=== PATIENT | female | born 1970 | race Caucasian/White ===

== ENCOUNTER 2020-05-27 09:30 | Outpatient (CLI) | payer OTHER, SELFPAY ==
--- NOTE | ~2020-05-27 | MM_ITS ---
EXAMINATION: MM screening alley BI w yran HISTORY: Screening mammogram TECHNIQUE: Craniocaudal and mediolateral oblique 3-D tomosynthesis images were obtained and synthetic 2-D images were generated. CAD analysis was submitted and interpreted. COMPARISON: 02/13/2018, 08/03/2016, 06/10/2013 bilateral digital screening mammogram examinations BREAST PARENCHYMAL COMPOSITION: There are scattered areas of fibroglandular density....... FINDINGS: Stable bilateral axillary tail lymph nodes. Occasional bilateral benign calcifications. The re is no evidence of suspicious mass, calcification, or architectural distortion to suggest malignanc y in either breast. There has been no suspicious interval change. IMPRESSION: 1. No mammographic evidence of malignancy. 2. Recommend routine screening mammography in one year. BI-RADS Category 2: Benign finding(s). Reviewed, dictated and finalized at location A.
== END 2020-05-27 09:31 | disposition home or self-care (01) ==
PROVIDERS: PCP Internal Medicine; Visit Provider Nurse Practitioner
DX: Z12.31 Encounter for screening mammogram for malignant neoplasm of breast (principal)
CPT/HCPCS: 77063; 77067

== ENCOUNTER 2023-04-13 01:49 | Day surgery (SDC) | payer OTHER, SELFPAY ==
[2023-04-06 11:01] VITALS: BMI 26.6
[2023-04-13 11:40] VITALS: BP 133/91; PULSE 87; RESP 18; TEMP 36.3; O2SAT 98; BMI 26.6
--- NOTE | 2023-04-13 11:49 | P.HP_ITS ---
History of Present Illness History of Present Illness Consent: Risks, benefits, and alternatives have been discussed and questions answered. Patient agrees to proceed with procedure. Chief complaint: neoplasm screening Narrative: Robyn Carrasquillo is a 52 year old female Presents for screening colonoscopy. Patient's current weight appetite and bowel movements are normal. Patient denies abdominal pain. She has had no bleeding. Family history noncontributory. Review of Systems Review of Systems: Review of systems noncontributory. [facility] Past Medical History Medical History (Updated 04/13/23 @ 11:50 by Calin Sutton MD) Essential tremor GERD (gastroesophageal reflux disease) Hyperglycemia Kidney infection Kidney stone Tubal Family History Family History Mother Hypertension Father Hypertension Essential tremor Parkinson disease Social History Social History Smoking status: Never smoker Alcohol intake: current Drinks per week: 6 Alcohol use details: socially every other weekend Substance use: never Substance use type: does not use Living arrangements: alone Spiritual care concerns: No Meds Home Medications and Allergies Home Medications Medication Instructions Recorded Confirmed Type propranolol 80 mg capsule,extended 80 mg PO DAILY 10/14/19 04/13/23 History release 24 hr pantoprazole 40 mg tablet,delayed 40 mg PO DAILY #30 tabs 03/26/23 04/13/23 Rx release estradiol-norethindrone acet 0.5 1 tablet PO DAILY 04/06/23 04/13/23 History mg-0.1 mg tablet Allergies Allergy/AdvReac Type Severity Reaction Status Date / Time hydrocodone Allergy Itching Verified 04/13/23 11:45 Exam Narrative: Physical exam reveals patient to be alert. Vital signs stable. HEENT exam is unremarkable. Patient is anicteric. Lungs are clear to auscultation and percussion. Heart is without murmur or extra sounds. Abdomen bowel sounds are present soft nontender with no organomegaly. Digital external rectal exam normal. Assessment and Plan Assessment and plan (1) Encounter for screening colonoscopy: Code(s): Z12.11 - Encounter for screening for malignant neoplasm of colon Status: Acute Assessment and Plan: Patient presents today for screening colonoscopy. She offers no problems. Appears to be at average risk for colon polyps. Further recommendations may be given after endoscopy.
[2023-04-13] MEDS: LACTATED RINGERS 1,000 ML 150 ML IV CONT (12:01)
--- NOTE | 2023-04-13 12:34 | WPDANESEPPF ---
Anes - Initial Pre Proc Eval Procedure: Operation Date: 04/13/23 13:00 Proposed Procedures p Screening Colonoscopy - Calin Sutton MD Date/Time: 04/13/23 12:34 Surgeon: Calin Sutton MD Pre Op Diagnosis: neoplasm screening Patient Data Age: 52 Gender: F Height: 1.6 m Weight: 68.3 kg Last Vital Signs Temp 97.4 F L 04/13/23 11:40 Pulse 87 04/13/23 11:40 Resp 18 04/13/23 11:40 BP 133/91 H 04/13/23 11:40 Pulse Ox 98 04/13/23 11:40 O2 Del Method Room Air 04/13/23 11:40 Allergies Allergy/AdvReac Type Severity Reaction Status Date / Time hydrocodone Allergy Itching Verified 04/13/23 11:45 Home Medications Medication Instructions Recorded Confirmed Type propranolol 80 mg capsule,extended 80 mg PO DAILY 10/14/19 04/13/23 History release 24 hr pantoprazole 40 mg tablet,delayed 40 mg PO DAILY #30 tabs 03/26/23 04/13/23 Rx release estradiol-norethindrone acet 0.5 1 tablet PO DAILY 04/06/23 04/13/23 History mg-0.1 mg tablet Patient hx anesthesia problems: none Family hx anesthesia problems: none Results Review: All pre-operative results and documents have been reviewed as part of the pre-operative evaluation. [facility] Past Medical History Medical History (Updated 04/13/23 @ 11:50 by Calin Sutton MD) Essential tremor GERD (gastroesophageal reflux disease) Hyperglycemia Kidney infection Kidney stone Tubal Family History Family History Mother Hypertension Father Hypertension Essential tremor Parkinson disease Social History Social History Smoking status: Never smoker Alcohol intake: current Drinks per week: 6 Alcohol use details: socially every other weekend Substance use: never Substance use type: does not use Living arrangements: alone Spiritual care concerns: No Anes - Eval Final PreProcedure Day of Procedure 04/13/23 12:34 Patient weight: normal Heart: regular rate and rhythm Lungs: clear to auscultation Airway: Mallampati scale class II Neurological: alert and oriented Last oral intake: >/= 8 hours ASA classification: II Emergent: no Anesthetic plan: proceed Anesthesia type and monitoring: general GIVS and standard monitoring Results Review: All pre-operative results and documents have been reviewed as part of the pre-operative evaluation. Informed Consent: The patient's anesthetic plan and its attendant risks and benefits were discussed with the patient/family/POA. Questions were solicited and answers provided to the satisfaction of the patient/family/POA.
[2023-04-13 13:25] VITALS: BP 99/61; PULSE 84; RESP 12; O2SAT 98
[2023-04-13 13:35] VITALS: BP 105/61; PULSE 76; RESP 18; O2SAT 98
[2023-04-13 13:45] VITALS: BP 122/82; PULSE 71; RESP 20; O2SAT 98
== END 2023-04-13 13:58 | disposition home or self-care (01) ==
PROVIDERS: PCP Internal Medicine; Visit Provider Internal Medicine Gastroenterology
PROC: 0DJD8ZZ Inspection of Lower Intestinal Tract, Via Natural or Artificial Opening Endoscopic (ICD-10-PCS; CPT 45378; principal; 2023-04-13 13:00)
DX: Z12.11 Encounter for screening for malignant neoplasm of colon (principal); K64.8 Other hemorrhoids; K21.9 Gastro-esophageal reflux disease without esophagitis
CPT/HCPCS: 45378; J2704; J7120

== ENCOUNTER 2023-04-27 11:37 | Outpatient (CLI) | payer OTHER, SELFPAY ==
[2023-04-27 17:05] LABS: Basophils Percent Auto 0.5 % (0.2-1.2); Eosinophils Percent Auto 0.4 % (0-4.4); Hematocrit 38.9 % (37.0-47.0); Hemoglobin 13.1 g/dL (12.0-15.0); Immature Granulocyte Absolute 0.03 K/mm3 (0.00-0.031); Immature Granulocyte Percent A 0.4 % (0-0.5); Lymphocytes Absolute Auto 2.33 K/mm3 (0.9-3.2); Lymphocytes Percent Auto 31.2 % (18.3-44.2); Mean Corpuscular HGB Conc 33.7 g/dl (32-36); Mean Corpuscular Hemoglobin 30.9 pg (26-34); Mean Corpuscular Volume 91.7 fl (80-100); Mean Platelet Volume 9.7 fl (7.4-10.4); Monocytes Absolute Auto 0.6 K/mm3 (0.1-0.6); Monocytes Percent Auto 7.8 % (2.6-8.5); Neutrophils Absolute Auto 4.5 K/mm3 (1.3-6.7); Neutrophils Percent Auto 59.7 % (45.5-73.1); Platelet Count Result 230 k/mm3 (150-375); Red Blood Count 4.24 M/mm3 (4.2-5.4); Red Cell Distribution Width 12.4 % (11.5-14.5); White Blood Count 7.5 K/mm3 (4.5-10.0)
[2023-04-27 17:18] LABS: Alanine Aminotransferase 35 U/L (6-35); Albumin Level 4.2 g/dL (3.5-5.1); Alkaline Phosphatase 71 U/L (38-126); Anion Gap 5 mmol/L (8-16); Aspartate Amino Transferase 35 U/L (14-36); Bilirubin,Total 0.7 mg/dL (0.2-1.3); Blood Urea Nitrogen 15 mg/dL (7-17); Calcium 8.8 mg/dL (8.4-10.2); Carbon Dioxide 29 mmol/L (22-30); Chloride 103 mmol/L (98-107); Cholesterol 181 mg/dL (0-200); Estimated Glomerular Filt Rate > 60; Glucose 94 mg/dL (65-110); HDL Direct 53 mg/dL; Potassium 4.1 mmol/L (3.4-5.0); Sodium 137 mmol/L (137-145); Triglycerides 100 mg/dL (<150)
[2023-04-27 17:29] LABS: LDL Cholesterol Direct 96 mg/dL
[2023-04-27 17:38] LABS: Vitamin D 25 Hydroxy 55.8 ng/mL
== END 2023-04-27 11:38 | disposition home or self-care (01) ==
LOC: ANHGOSHLAB 11:39
PROVIDERS: PCP Internal Medicine; Visit Provider Nurse Practitioner
DX: G25.0 Essential tremor (principal); Z13.21 Encounter for screening for nutritional disorder; Z13.220 Encounter for screening for lipoid disorders
CPT/HCPCS: 36415; 80053; 80061; 82306; 85025

== ENCOUNTER 2023-04-30 08:48 | Outpatient (CLI) | payer OTHER, SELFPAY ==
--- NOTE | ~2023-04-30 | DEXA_ITS ---
Bone Density Report Name: RICARDA MENDOZA Age: 52 Sex: Female Ethnicity: White Date of : 1970 Indication: postmenopausal; screening for osteoporosis; Referring Provider: ANEL ARMÍREZ Study: Bone densitometry was performed. Exam Date: April 30, 2023 Accession number: [id number] Bone Density: Region BMD T-score Z-score Classification AP Spine(L1-L4) 1.239 1.7 2.7 Normal Femoral Neck (Left) 0.795 -0.5 0.5 Normal Total Hip (Left) 0.971 0.2 0.9 Normal Femoral Neck (Right) 0.856 0.1 1.0 Normal Total Hip (Right) 1.010 0.6 1.2 Normal Total Hip Mean 0.991 0.4 1.1 Normal World Health Organization criteria for BMD impression classify patients as: Normal (T-score at or above -1.0), Osteopenia (T-score between -1.0 and -2.5), or Osteoporosis (T-score at or below -2.5). 10-year Fracture Risk: FRAX not reported because: All T-scores for Spine Total, Hip Total, Femoral Neck at or above -1.0 Clinical Information Provided by Patient: Patient maximum height was 64 Menopause Age: 49 Drinks caffeinated beverages Onset of menses at age 12 Number of children 1 Impression: The patient has normal bone mass. Discussion: BONE DENSITY IS ABOVE THE MINIMUM DESIRABLE LEVEL AT ALL SKELETAL SITES TESTED. This patient?s bone mineral density is above the minimum desirable level (T-score -1.0 or better) at all sites measured. The patient should follow a healthful lifestyle (good nutrition with adequate calcium and vitamin D, and appropriate weight-bearing exercise). Follow-Up: Consider repeating this study in 5 years or sooner if there is some new clinical indication. Reported by: [facility] on 04/30/2023 9:14:00 AM. Reviewed, dictated and finalized at location [facility]
--- NOTE | ~2023-04-30 | MM_ITS ---
EXAMINATION: MM screening alley BI w ryan HISTORY: Screening mammogram TECHNIQUE: Craniocaudal and mediolateral oblique 3-D tomosynthesis images were obtained and synthetic 2-D images were generated. CAD analysis was submitted and interpreted. COMPARISON: 05/23/2020, 02/13/2018 bilateral screening mammogram examinations BREAST PARENCHYMAL COMPOSITION: There are scattered areas of fibroglandular density. FINDINGS: There is no evidence of suspicious mass, calcification, or architectural distortion to sugg est malignancy in either breast. There has been no suspicious interval change. IMPRESSION: 1. No mammographic evidence of malignancy. 2. Recommend routine screening mammography in one year. BI-RADS Category 1: Negative Reviewed, dictated and finalized at location B.
== END 2023-04-30 08:49 | disposition home or self-care (01) ==
LOC: ANHIMG 08:52
PROVIDERS: PCP Internal Medicine; Visit Provider Obstetrics & Gynecology Gynecology
DX: Z12.31 Encounter for screening mammogram for malignant neoplasm of breast (principal); Z78.0 Asymptomatic menopausal state
CPT/HCPCS: 77063; 77067; 77080

== ENCOUNTER 2024-01-02 10:20 | Outpatient (CLI) | payer OTHER, SELFPAY ==
[2024-01-02 19:43] LABS: Alanine Aminotransferase 32 U/L (6-35); Albumin Level 4.4 g/dL (3.5-5.1); Alkaline Phosphatase 74 U/L (38-126); Anion Gap 8 mmol/L (4-12); Aspartate Amino Transferase 43 U/L (14-36); Bilirubin,Total 0.9 mg/dL (0.2-1.3); Blood Urea Nitrogen 16 mg/dL (7-17); Calcium 9.5 mg/dL (8.4-10.2); Carbon Dioxide 26 mmol/L (22-30); Chloride 103 mmol/L (98-107); Cholesterol 190 mg/dL (0-200); Estimated Glomerular Filt Rate > 60; Glucose 109 mg/dL (65-110); HDL Direct 54 mg/dL; Potassium 4.4 mmol/L (3.4-5.0); Sodium 137 mmol/L (137-145); Triglycerides 130 mg/dL (<150)
[2024-01-02 19:54] LABS: LDL Cholesterol Direct 107 mg/dL
[2024-01-02 20:13] LABS: Thyroid Stimulating Hormone 0.555 uIU/mL (0.465-4.680)
== END 2024-01-02 10:21 | disposition home or self-care (01) ==
LOC: ANHGOSHLAB 10:21
PROVIDERS: PCP Nurse Practitioner; Visit Provider Nurse Practitioner
DX: R51.9 Headache, unspecified (principal)
CPT/HCPCS: 36415; 80053; 80061; 84443

== ENCOUNTER 2024-03-21 10:45 | Outpatient (CLI) | payer OTHER, SELFPAY ==
--- NOTE | ~2024-03-21 | US_ITS ---
EXAMINATION: US thyroid DATE: 03/21/2024 11:39 INDICATION: Nontoxic single thyroid nodule TECHNIQUE: Multiple ultrasound images of the thyroid were obtained. COMPARISON: None. FINDINGS: The right thyroid lobe measures 4.4 x 1.3 x 1.6 cm. The left thyroid lobe measures 4.1 x 1.5 x 1.3 c m. 1.4 cm solid wider than tall hypoechoic nodule with lobular margins but with echogenic foci in th e left thyroid lobe (TI-RADS 5, highly suspicious , FNA if >=1.0 cm, annual followup is >0.5 cm). 3-4 mm solid hypoechoic TI RADS 4 nodule with smooth margins and without echogenic foci in the right thy roid lobe. There is normal echotexture, echogenicity and vascular flow throughout the remainder of th e thyroid gland. IMPRESSION: 1. 1.4 cm TI RADS 4 left thyroid nodule for which ultrasound-guided fine-needle aspiration would be r ecommended. Reviewed, dictated and finalized at location A. IMPRESSION: 1. 1.4 cm TI RADS 4 left thyroid nodule for which ultrasound-guided fine-needle aspiration would be recommended.
== END 2024-03-21 10:46 | disposition home or self-care (01) ==
LOC: ANHIMG 10:46
PROVIDERS: PCP Nurse Practitioner; Visit Provider Nurse Practitioner
DX: E04.1 Nontoxic single thyroid nodule (principal)
CPT/HCPCS: 76536

== ENCOUNTER 2024-05-02 11:37 | Outpatient (CLI) | payer OTHER, SELFPAY ==
[2024-05-02 14:39] LABS: Basophils Percent Auto 0.6 % (0.2-1.2); Eosinophils Percent Auto 0.1 % (0-4.4); Hematocrit 41.3 % (37.0-47.0); Hemoglobin 13.7 g/dL (12.0-15.0); Immature Granulocyte Absolute 0.02 K/mm3 (0.00-0.031); Immature Granulocyte Percent A 0.3 % (0-0.5); Lymphocytes Absolute Auto 2.65 K/mm3 (0.9-3.2); Lymphocytes Percent Auto 38.4 % (18.3-44.2); Mean Corpuscular HGB Conc 33.2 g/dl (32-36); Mean Corpuscular Hemoglobin 30.8 pg (26-34); Mean Corpuscular Volume 92.8 fl (80-100); Mean Platelet Volume 9.7 fl (7.4-10.4); Monocytes Absolute Auto 0.8 K/mm3 (0.1-0.6); Monocytes Percent Auto 11.1 % (2.6-8.5); Neutrophils Absolute Auto 3.4 K/mm3 (1.3-6.7); Neutrophils Percent Auto 49.5 % (45.5-73.1); Platelet Count Result 249 k/mm3 (150-375); Red Blood Count 4.45 M/mm3 (4.2-5.4); White Blood Count 6.9 K/mm3 (4.5-10.0)
[2024-05-02 15:19] LABS: Alanine Aminotransferase 32 U/L (6-35); Albumin Level 4.3 g/dL (3.5-5.1); Alkaline Phosphatase 61 U/L (38-126); Anion Gap 9 mmol/L (4-12); Aspartate Amino Transferase 41 U/L (14-36); Bilirubin,Total 0.5 mg/dL (0.2-1.3); Blood Urea Nitrogen 20 mg/dL (7-17); Calcium 9.3 mg/dL (8.4-10.2); Carbon Dioxide 28 mmol/L (22-30); Chloride 100 mmol/L (98-107); Cholesterol 181 mg/dL (0-200); Estimated Glomerular Filt Rate > 60; Glucose 91 mg/dL (65-110); HDL Direct 56 mg/dL; Potassium 4.3 mmol/L (3.4-5.0); Sodium 137 mmol/L (137-145); Triglycerides 119 mg/dL (<150)
[2024-05-02 15:30] LABS: LDL Cholesterol Direct 93 mg/dL
[2024-05-02 15:47] LABS: Thyroid Stimulating Hormone 0.724 uIU/mL (0.465-4.680)
[2024-05-02 15:51] LABS: Vitamin D 25 Hydroxy 39.7 ng/mL
== END 2024-05-02 11:38 | disposition home or self-care (01) ==
LOC: ANHGOSHLAB 11:39
PROVIDERS: PCP Internal Medicine; Visit Provider Nurse Practitioner
DX: E55.9 Vitamin D deficiency, unspecified (principal); R74.8 Abnormal levels of other serum enzymes; G25.0 Essential tremor
CPT/HCPCS: 36415; 80053; 80061; 82306; 84443; 85025

== ENCOUNTER 2024-05-09 12:27 | Outpatient (CLI) | payer OTHER, SELFPAY ==
--- NOTE | ~2024-05-09 | US_ITS ---
EXAMINATION: US FNA w image guidance DATE: 05/09/2024 13:21 INDICATION: left thyroid nodule TECHNIQUE: A time-out was performed to verify the patient's name, date of , and procedure to be performed . The procedure and its benefits and risks were discussed with the patient. Risks specifically discus sed included bleeding and infection. The patient understood the risks and agreed to proceed. The neck was prepped and draped in the usual sterile manner. 3 mL 1% lidocaine was used for local anesthesia . 6 passes were made with a 25G needle into the lesion. Appropriate needle location was documented with continuous sonographic guidance. A sterile bandage was applied. There were no immediate compli cations. FINDINGS: Grayscale ultrasound images demonstrate biopsy needles advanced into a 1.5 x 0.8 x 0.6 cm TI RADS 5 l eft thyroid nodule. IMPRESSION: 1. Successful ultrasound-guided fine needle aspiration of a 1.5 cm TI RADS 5 left thyroid nodule. Reviewed, dictated and finalized at location A. IMPRESSION: 1. Successful ultrasound-guided fine needle aspiration of a 1.5 cm TI RADS 5 l eft thyroid nodule.
== END 2024-05-09 12:28 | disposition home or self-care (01) ==
LOC: ANHIMG 12:28
PROVIDERS: PCP Internal Medicine; Visit Provider Clinical Nurse Specialist
DX: E04.1 Nontoxic single thyroid nodule (principal)
CPT/HCPCS: 10005; 88172; 88173; 88305

== ENCOUNTER 2025-03-24 11:05 | Emergency (ER) | payer OTHER, SELFPAY ==
[2025-03-24] VITALS (7 sets, daily range): BP systolic 144–173; BP diastolic 76–106; PULSE 57–62; RESP 13–16; TEMP 36.8–37; O2SAT 97–98
--- NOTE | ~2025-03-24 | CT_ITS ---
EXAMINATION: CTA chest PE protocol DATE: 03/24/2025 13:56 CDT INDICATION: Elevated d-dimer with chest pain TECHNIQUE: Computed tomographic angiography (CTA) of the chest was performed with 100 mL Omnipaque-35 0 intravenous contrast. The dose-length product was 216.14 mGy-cm. Maximum intensity projection 3D-re constructions of the aorta and other arteries were constructed by the technologist on a separate work station. COMPARISON: None. FINDINGS/OBSERVATIONS: PULMONARY ARTERIES: No filling defect is identified within the main or proximal pulmonary artery. The main pulmonary artery is not enlarged. THORACIC AORTA: No aneurysmal dilatation or dissection is present. The great vessels are intact LUNGS: Scattered 4 and 5 mm nodules detected bilaterally. These are detailed as follows: Left upper lobe, 4.9 mm, axial series, image 29. Left lower lobe, 5.4 mm, axial series, image 70. Right middle lobe, 4.5 mm, axial series, image 43 Right lower lobe, 7 mm, axial series, image 84 Right lower lobe, 5.4 mm, axial series, image 61 MEDIASTINUM: No morphologically suspicious or pathologically enlarged lymph nodes are identified with in the mediastinum. Nonpathologically enlarged or morphologically suspicious lymph nodes within the bilateral axilla, the largest measuring 7.6 mm in short axis dimension (axial series, image 17). BONES OF THE CHEST: No acute fracture. No significant degenerative disease. No lytic or blastic lesions. HEART: The heart is of normal size, without pericardial effusion. IMPRESSION: No pulmonary embolus. No thoracic aortic dissection. Scattered subcentimeter pulmonary nodules, the largest measuring 7 mm in the right lower lobe for whi ch follow-up as per Fleischner guidelines is recommended (PET/CT versus 3 month follow-up). The lungs are otherwise clear. Reviewed, dictated and finalized at location A. IMPRESSION: No pulmonary embolus. No thoracic aortic dissection. Scattered subcentimeter pulmonary nodules, the largest measuring 7 mm in the ri ght lower lobe for which follow-up as per Fleischner guidelines is recommended (PET/CT versus 3 month follow-up). The lungs are otherwise clear.
--- NOTE | ~2025-03-24 | XR_ITS ---
EXAMINATION: XR chest 2V 03/24/2025 12:14 INDICATION: Chest tightness PROCEDURE: 2 view chest COMPARISON: 01/27/2013 FINDINGS: The lungs are clear. The cardiomediastinal silhouette is within normal limits. There are no pleural effusions. There is no pneumothorax suspected. IMPRESSION: 1: NO ACUTE CARDIOPULMONARY DISEASE. Reviewed, dictated and finalized at location A.
--- NOTE | 2025-03-24 11:13 | ECG_ITS ---
Test Date: 2025-03-24 11:15:24 Measurements Intervals [place] Rate: 54 P: 28 ID: [id number] QRS: 6 QRSD: 85 T: 16 QT: 410 QTc: 389 Interpretive Statements SINUS BRADYCARDIA No previous ECG available for comparison Electronically Signed On 03-24-2025 16:59:17 CDT by Gill Howard M.D.
[2025-03-24 11:23] LABS: Hematocrit 40.1 % (37.0-47.0); Hemoglobin 13.8 g/dL (12.0-15.0); Immature Granulocyte Percent A 0.2 % (0-0.5); Lymphocytes Absolute Auto 2.25 K/mm3 (0.9-3.2); Mean Corpuscular HGB Conc 34.4 g/dl (32-36); Mean Corpuscular Hemoglobin 30.7 pg (26-34); Mean Corpuscular Volume 89.3 fl (80-100); Nucleated Red Blood Cells Absolute Auto 0.000 K/mm3 (0.0-0.012); Nucleated Red Blood Cells Perc 0.0 % (0.0-0.2); Platelet Count Result 237 k/mm3 (150-375); Red Blood Count 4.49 M/mm3 (4.2-5.4); White Blood Count 6.4 K/mm3 (4.5-10.0)
[2025-03-24 11:46] LABS: INR 1.1; Prothrombin Time 14.1 Seconds (11.1-14.7)
[2025-03-24 11:47] LABS: Partial Thromboplastin Time 23.7 Seconds (22.3-36.8)
[2025-03-24 11:49] LABS: Alanine Aminotransferase 35 U/L (6-35); Albumin Level 4.3 g/dL (3.5-5.1); Alkaline Phosphatase 65 U/L (38-126); Anion Gap 10 mmol/L (4-12); Aspartate Amino Transferase 34 U/L (14-36); Bilirubin,Total 0.8 mg/dL (0.2-1.3); Blood Urea Nitrogen 14 mg/dL (7-17); Calcium 9.5 mg/dL (8.4-10.2); Carbon Dioxide 23 mmol/L (22-30); Chloride 102 mmol/L (98-107); Estimated CRCL calculation 64 ml/min; Estimated Glomerular Filt Rate > 60; Glucose 113 mg/dL (65-110); Lipase 36 U/L (23-300); Potassium 4.1 mmol/L (3.4-5.0); Sodium 135 mmol/L (137-145); Total Protein 7.2 g/dL (6.3-8.2)
[2025-03-24 11:57] LABS: Troponin I < 0.012 ng/mL (0.000-0.034)
--- OUTSIDE RECORDS SUMMARY | 2025-03-24 12:16 | XMS_ITS | Clinical Summary ---
Author Organization [facility] [employer] Address [address] [place] [address] Care Team Providers Care Display And Banner Designer Name Role Phone Adrienne Juan Real DAVIS Primary Care Provider [phone] Source Comments [facility] [employer],non-owned Affiliates and Associated Physician Practices is amultiple site organization consisting of ambulatory clinics and hospital sitesin [place] and [place]. This disclosure is being madepursuant to the Care Everywhere program and may not contain all information available regarding this patient. Last updated 18.[facility] [employer] Allergies Active Allergy Reactions Criticality Noted Date Comments Hydrocodone Itching Medium 02/11/2019 Medications * Be aware that medications may not be up to date on this document. Alwaysverify current medications with the patient. PROPRANOLOL HCL PO A ctive Pantoprazole Sodium (PROTONIX PO) Active Norgestim-Eth Estrad Triphasic (ORTHO TRI-CYCLEN LO PO) Active Active Problems No known active problems Family History Medical History Relation Name Comments Hypertension Father Parkinson's Disease Father Hypertension Mother Relation Name Status Comments Father Mother Social History Tobacco Use Types Packs/Day Years Used Date Smoking Tobacco: Never Smokeless Tobacco: Never Comments No Sex and Gender Information Value Date Recorded Sex Assigned at Not on file Legal Sex Female 7:49 AM CDT Gender Identity Not on file Sexual Orientation Not on file Last Filed Vital Signs Vital Sign Reading Time Taken Comments Blood Pressure 114/66 11/11/2019 5:12 PM CDT Pulse 86 11/11/2019 5:12 PM CDT Temperature 37.3 C (99.1 F) 11/11/2019 5:12 PM CDT Respiratory Rate 16 11/11/2019 5:12 PM CDT Oxygen Saturation 98% 11/11/2019 5:12 PM CDT Inhaled Oxygen Concentration - - Weight 68 kg (150 lb) 11/11/2019 5:12 PM CDT Height 162.6 cm (5' 4) 11/11/2019 5:12 PM CDT Body Mass Index 25.75 11/11/2019 5:12 PM CDT Plan of Treatment Health Maintenance Due Date Last Done Comments COLOGUARD (AGES 45-75) - COL ON CA SCREENING 1970 COLON MONITORING 1970 COLONOSCOPY - COLON CA SCREENING 1969 CT COLONOGRAPHY - COLON CA SCREENING 1970 Colorectal Cancer Screening 1970 FIT - COLON CA SCREENING 1969 FLEX SIG - COLON CA SCREENING 1969 LIPID TESTING 1970 MAMMOGRAM 1970 HIV SCREENING 1984 HEPATITIS C SCREENING 09/25/1987 DTAP/TDAP/TD VACCINES (1 - Tdap) 1988 HEPATITIS B VACCINE (1 of 3 - 19+ 3-dose series) 1988 SCREENING FOR DIABETES 02/11/2019 PNEUMOCOCCAL VACCINE 50+ (1 of 1 - PCV) 2019 ZOSTER VACCINE (1 of 2) 2019 COVID-19 VACCINE (1 - 2023-2 5 season) 2024 DEPRESSION SCREENING 09/03/2024 INFLUENZA VACCINE (#1) 2025 HIB VACCINE Aged Out No longer eligi ble based on patient's age to complete this topic HPV VACCINE Aged Out No longer eligi ble based on patient's age to complete this topic MENINGOCOCCAL (Group B) VACC INE SHARED DECISION-MAKING Aged Out No longer eligibl e based on patient's age to complete this topic MENINGOCOCCAL GROUPS A/C/Y/W VACCINE Aged Out No longer eligible b ased on patient's age to complete this topic Insurance [facility] Care Teams Display And Banner Designer Relationship Specialty Start Date End Date Juan Deleon DO PCP - General Internal Medicine 02/11/19
--- OUTSIDE RECORDS SUMMARY | 2025-03-24 12:16 | XMS_ITS | Referral Summary ---
Author Organization [facility] Address [address] [place] [address] Care Team Providers Care Baker Chef Name Role Phone Juan Deleon DO Primary Care Provider +- [phone] Ishan Oconnor MD Unavailable SummerdaleMarko florentino MD Unavailable +1 [phone] Encounters Date Type Department Care Team Description 03/24/2025 10:00 AM CDT Office Visit [facility] at [address] [address] Rebeca Key NP Other chest pain (Primary Dx); Elevated blood pressure reading without diagnosis of hypertension 01/07/2025 2:00 PM CDT Office Visit [facility] Movement Disorders [address] [address] [address] [place] [address] Zunilda Arevalo NP Essential tremor (Primary Dx); Impaired proprioception 12/25/2024 Results Follow-Up [facility] at [address] [address] Tali Silva PA Urine culture Urine, clean voided 12/23/2024 10:44 PM CDT - 12/23/2024 11:59 PM CDT Hospital Encounter [id number] [place] [address] Urinary frequency Discharge Disposition: Discharge to home or self care 12/23/2024 7:30 PM CDT Office Visit [facility] at [address] [address] Ashish Willis NP Urinary frequency (Primary Dx) from Last 3 Months Allergies Active Allergy Reactions Criticality Noted Date Comments Hydrocodone Itching Low 11/21/2015 Medications levonorgestrel- ethinyl estrad (LYBREL) 90-20 mcg per tablet Take 1 tablet by mouth every morning Active pantoprazole DR (PROTONIX) 40 mg EC tablet Take 1 tablet (40 mg total) by mouth engineering instructor before breakfast Active propranolol LA (INDERAL LA) 120 mg 24 hr capsule Take 1 Capsule (120 mg) by mouth daily. 90 capsule 3 5 Active primidone (MYSOLINE) 50 mg tablet Week 1 start 25 mg (1/2 tab) nightly at bedtime. Week 2 increase to 50 mg (1 tab) nightly at bedtime). Week 3 increase to 75 mg (1.5 tabs) nightly at bedtime. Week 4 increase to 100 mg (2 tabs) nightly at bedtime. 60 tablet 11 5 Active Active Problems Problem Noted Date Diagnosed Date Lump on neck 08/10/2024 Assessment & Plan (08/10/2024 7:24 PM AVICULTURIST): No visible significant lump or mass noted however patient has moderate tenderness on palpation in under the left jaw area and proximal portion of left side of neck Unclear etiology? 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 Carrasquillo has postural/action tremor greater than rest tremor along with voice tremor with a family history of tremor consistent with essential tremor. She thus far has not had signs of parkinsonism. She has historically had improvement of her tremor with propranolol though not with most recent increase to 120 mg LA (from 80 mg LA) and with resultant fatigue. Regarding her imbalance, this has been largely stable. On previous exam she had decreased proprioception and vibratory sense with brisk reflexes and an upgoing toe on the left. There was consideration of myelopathy versus large-fiber neuropathy. EMG/NCS and MRI brain/spine were unrevealing. Serum studies including zinc, TSH, B12, immunofixation, vitamin E, ESR, and ceruloplasmin were unremarkable (B12 377). There were mild degenerative changes noted throughout the cervical, thoracic and lumbar spine without high-grade spinal canal or neuroforaminal narrowing as well as an incidentally noted small enhancing left thyroid nodule on the MRIs. She has since undergone thyroid ultrasound and biopsy. She has some intermittent RUE tingling and pain without weakness that may represent radiculopathy. Could consider PT. Recommendations: For now continue same propranolol 120 mg LA - will plan to reduce this back to previous dosing of 80 m g LA once optimized on primidone due to fatigue Start primidone and titrate as tolerated/as needed up to 100 mg nightly for now until she sends update Week # 1: Start taking 25 mg at night Week # 2: Take 50 mg nightly Week # 3: Take 75 mg nightly Week # 4: Take 100 mg nightly Follow-up as scheduled Potential medication side effects were discussed during the encounter. Assessment & Plan (11/25/2023 2:36 PM CDT): Ms. Ibarra has postural/action tremor greater than rest tremor along with voice tremor with a family history of tremor consistent with essential tremor. She has no signs of parkinsonism or progression. She has had improvement of her tremor with propranolol with perhaps occasional orthostatic hypotension. She would like to try an increased dose of propranolol for better tremor control. We discussed importance of hydration and the risk of orthostasis (light-headedness with standing). If this occurs, we can add primidone instead. She has had worsening balance in the past year. On exam, she has marked decreased proprioception and vibratory sense. Reflexes are symmetric brisk in lower extremities with upgoing toe on the left. . Ddx for this is myleopathy vs large-fiber neuropathy. We will obtain spine imaging for this and also do an EMG/NCS to sort this out. We will do first tier neuropathy labs. Based on results, we will consider a neuromuscular referral. Recommendations: Essential Tremor. Increase propranolol to 120mg ER ; drink 2 L of fluids Watch for light-headed with standing. Bloodwork for myelopathy/neuropathy due to proprioceptive loss EMG/NCS MRI brain/spine Consider neuromuscular referral based on results Assessment & Plan (10/18/2022 8:59 PM AVICULTURIST): Ms. Ibarra has postural/action tremor greater than rest tremor along with voice tremor with a family history of tremor consistent with essential tremor. She has no signs of parkinsonism or progression. She has had improvement of her tremor with propranolol with perhaps occasional orthostatic hypotension. If this worsens, we can switch her to pimidone or decrease her propranolol dose and add on primidone. We discussed this strategy today, and she is fine with her current propranolol. Of note, she has a 3 ?dermal vs subdermal mass lesion on her forehead that has increased in size recently. We will refer her to plastics (face) for this. There are 3 and they are immobile, hard, and round in nature. Recommendations: 1. Continue propranolol. 2. Plastic surgery/face referral 3. Follow up in 1 year. The patient should call the office prn. Assessment & Plan (06/10/2020 11:15 AM CDT): essential tremor: Ms. Ibarra has postural/action tremor greater than rest tremor with a family history of tremor. This most likely represents an essential tremor. She has no signs of parkinsonism or progression. She feels better on the propranolol with mild residual tremor and would like to continue her current dose. She notes some vague sense of imbalance with turning. She will get it check out with her PMD if it does not resolve. It does not seem related to her tremor or propranolol. Recommendations: 1. Continue propranolol. The patient should return to office in 12 months. The patient should call the office prn. Assessment & Plan (06/12/2019 2:19 PM CDT): essential tremor: Ms. Ibarra has postural/action tremor greater than rest tremor with a family history of tremor. This most likely represents an essential tremor. She has no signs of parkinsonism or progression. She feels better on the propranolol with mild residual tremor and would like to continue her current dose. Recommendations: 1. Continue propranolol. The patient should return to office in 12 months. The patient should call the office prn. Social History Tobacco Use Types Packs/Day Years Used Date Smoking Tobacco: Never Smokeless Tobacco: Never Tobacco Cessation:Counseling Given: Not Answered AUDIT-C Answer Date Recorded Q1: How often do you have a drink containing alc ohol? 2-4 times a month 04/23/2024 Q2: How many drinks containi ng alcohol do you have on a typical day when you are drinking? 1 or 2 04/23/2024 Q3: How often do you have si x or more drinks on one occasion? Never 04/23/2024 PHQ-2 Answer Date Recorded PHQ-2 Total Score (If total score is 3 or more points, staff should administer the PHQ-9) 0 05/11/2023 Personal Safety Answer Date Recorded Have you ever been in or are you currently in a harmful physical or emotional relationship or is someone making you feel afraid or unsafe? Denies 04/23/2024 Comments No Sex and Gender Information Value Date Recorded Sex Assigned at Not on file Legal Sex Female 7:46 AM AVICULTURIST Gender Identity Not on file Sexual Orientation Not on file Last Filed Vital Signs Vital Sign Reading Time Taken Comments Blood Pressure 172/136 03/24/2025 10:31 AM CDT Pulse 74 03/24/2025 10:31 AM CDT Temperature 36.6 C (97.8 F) 03/24/2025 9:59 AM CDT Respiratory Rate 16 03/24/2025 9:59 AM CDT Oxygen Saturation 97% 03/24/2025 9:59 AM CDT Inhaled Oxygen Concentration - - Weight 74.4 kg (164 lb) 03/24/2025 9:59 AM CDT Height 162.6 cm (5' 4) 03/24/2025 9:59 AM CDT Body Mass Index 28.15 03/24/2025 9:59 AM CDT Plan of Treatment Not on file Medical Devices Implanted Type Area Certified Recreational Therapist Device Identifier Shelf Expiration Date Model / Serial / Lot Infoxel Juan Jose Contour Vl 4.8fr 22-30cm Taper Tip Bladder Calin Low Profile Stiff Latex Free 180-155-01 - [id number] Implanted:Qty: 1 on 05/11/2023 by Ishan Oconnor MD at [facility] Left: Ureter [place] [employer] Juan Jose 09/04/2026 [id number] / / [id number] Procedures Procedure Name Priority Date/Time Associated Diagnosis Comments ECG 12-LEAD Routine 03/24/2025 10:12 AM CDT Other chest pain POCT URINALYSIS DIPSTICK Routine 12/23/2024 7:40 PM CDT Urinary frequency URINE CULTURE Routine 12/23/2024 7:40 PM CDT Urinary frequency SCREENING MAMMOGRAM BILATERAL W GEORGES Schedule Routine, Read Routine (OP Routine) 07/04/2024 4:20 PM CDT Screening mammogram, encounter for from Last 3 Months or Most Recently Relevant to Health Maintenance Results * ECG 12 lead (03/24/2025 10:12 AM CDT) Rebeca Key NP ECG ORDERABLES Final Result * POCT urinalysis dipstick (12/23/2024 7:40 PM CDT) Color, Urine, POC Yellow Clarity, ur, POC Clear Clear Glucose, ur, POC Negative Negative MG/DL Bilirubin, ur, POC Negative Negative, Small, Moderate, Large Ketones, ur, POC Negative Negative Specific [place], POC 1.030 1.003 - 1.030 Blood, ur, POC Negative Negative pH, ur, POC 5.5 5.0 - 8.0 Protein, ur, POC Negative Negative Urobilinogen, urine, POC 0.2 0.2 - 1.0 mg/dL Nitrite, ur, POC Negative Negative Leukocytes, ur, POC Negative Negative Lot Number [id number] Urine 12/23/2024 7:40 PM CDT Ashish Willis NP POINT OF CARE TEST ORDERABLES F inal Result * Urine culture Urine, clean voided (12/23/2024 7:40 PM CDT) Report Final Report: Growth indicative of contamination with periurethral viral. Please submit a new specimen with special attention given to the collection process and to prompt transport to the laboratory. Comment:Testing performed by : [facility], [address] [place]., [address] Organism GROWTH INDICATES CONTAM WITH PERIURETHRAL VIRAL. TRUE Urine, clean voided 12/23/2024 7:40 PM CDT 12/24/2024 5:53 AM CDT Narrative TRUE - 12/25/2024 1:13 PM CDT Testing performed by [facility] Microbiology Laboratory ([phone]) Ashish Willis NP LAB MICROBIOLOGY - [facility] Final Result TRUE [id number] Department [place] [address] * Screening Mammogram Bilateral W Georges (07/04/2024 4:20 PM CDT) Anatomical Region Laterality Modality Breast Bilateral Mammography 07/16/2024 9:05 AM AVICULTURIST Impressions 07/16/2024 9:05 AM AVICULTURIST No evidence of malignancy in either breast. FINAL ASSESSMENT: BI-RADS Category 1: Negative. RECOMMENDATION: Recommend return for annual screening mammogram in 12 months. Electronically signed by: Deonna Mccullough MD Narrative 07/16/2024 9:05 AM AVICULTURIST EXAMINATION: BILATERAL SCREENING MAMMOGRAM COMPARISON: Mammography 04/30/2023, 05/27/2020 TECHNIQUE: Full-field 2D and digital breast tomosynthesis (DBT) images were obtained. CAD was utilized. BREAST PARENCHYMAL COMPOSITION: There are scattered areas of fibroglandular density. FINDINGS: There is no suspicious mass, calcification, or distortion in either breast. Self Screening Mammogram IMG MAMMO PROCEDURES Fi nal Result from Last 3 Months or Most Recently Relevant to Health Maintenance Insurance [facility] Advance Directives For more information, please contact: [phone] * Full Code (Latest Code Status on File) Date Activated Date Inactivated Comments 05/11/2023 12:29 PM 05/12/2023 5:23 PM Care Teams Baker Chef Relationship Specialty Start Date End Date Juan Deleon DO PCP - General 04/20/17 Ishan Oconnor MD Consulting Physician Urology 05/12/23 SummerdaleMarko florentino MD Consulting Physician Urology 08/28/23
--- OUTSIDE RECORDS SUMMARY | 2025-03-24 12:16 | XMS_ITS | Encounter Summary ---
Author Organization [facility] Address [address] [place] [address] Care Team Providers Care Automatic Centrifugal Station Operator Name Role Phone Juan Deleon DO Primary Care Provider [phone]- [phone] Ishan Oconnor MD Unavailable EquinunkMarko florentino MD Unavailable [phone] [phone] Reason for Visit * Reason Comments Chest Pain Patient here for c/o chest pain that stared about 20 minutes ago. States she feels like someone was sitting on her chest. Jaw pain that started at the same time. 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 Gender Identity Not on file Sexual Orientation Not on file documented as of this encounter Last Filed Vital Signs Vital Sign Reading [...] Mass Index 28.15 03/24/2025 9:59 AM CDT documented in this encounter Plan of Treatment Not on file documented as of this encounter Procedures Procedure Name Priority Date/Time Associated Diagnosis Comments ECG 12-LEAD Routine 03/24/2025 10:12 AM CDT Other chest pain documented in this encounter Results * ECG 12 lead (03/24/2025 10:12 AM CDT) Rebeca Key PLASTER MECHANIC ECG ORDERABLES Final Result documented in this encounter Visit Diagnoses Diagnosis Other chest pain- Primary Elevated blood pressure reading without diagnosis of hypertension documented in this encounter Care Teams Automatic Centrifugal Station Operator Relationship Specialty Start Date End Date Juan Deleon DO PCP - General 04/20/17 Ishan Oconnor MD Consulting Physician Urology 05/12/23 EquinunkMarko MD Consulting Physician Urology 08/28/23 documented as of this encounter
--- OUTSIDE RECORDS SUMMARY | 2025-03-24 12:16 | XMS_ITS | Clinical Summary ---
Author Organization [facility] Address [address] [place] [address] Care Team Providers Care Strip Cleaner Name Role Phone Juan Deleon DO Primary Care Provider +1- [phone] Ishan Oconnor MD Unavailable RogersonMarko florentino MD Unavailable [phone] -[phone] Allergies Active Allergy Reactions Criticality Noted Date Comments Hydrocodone Itching Low 11/21/2015 Medications levonorgestrel- ethinyl estrad (LYBREL) 90-20 mcg per tablet Take 1 tablet by mouth every morning Active pantoprazole DR (PROTONIX) 40 mg EC tablet Take 1 tablet (40 mg total) by mouth warehouse engineer before breakfast Active propranolol LA (INDERAL LA) [...] 08/10/2024 Assessment & Plan (08/10/2024 7:24 PM BELT TURNER): No visible significant lump or mass noted [...] of bones of skull and face 02/14/20 24 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 Ibarra has postural/action tremor greater than [...] The patient should call the office prn. Encounters Date Type Department Care Team Description 03/24/2025 10:00 AM CDT Office Visit [facility] at [address] [phone] Rebeca Key NP Other chest pain (Primary Dx); Elevated blood pressure reading without diagnosis of hypertension 01/07/2025 2:00 PM CDT Office Visit [facility] Movement Disorders [address] [place] [address] [address] [place] [address] Zunilda Arevalo NP Essential tremor (Primary Dx); Impaired proprioception 12/25/2024 Results Follow-Up [facility] at [address] [phone] Tali Silva PA Urine culture Urine, clean voided 12/23/2024 10:44 PM CDT - 12/23/2024 11:59 PM CDT Hospital Encounter [address] [address] Urinary frequency Discharge Disposition: Discharge to home or self care 12/23/2024 7:30 PM CDT Office Visit [facility] Medical Group [facility] Care at [address] [address] Ashish Willis NP Urinary frequency (Primary Dx) from Last 3 Months Surgical History Surgery Date Site/Laterality Comments SALPINGECTOMY 09/03/2007 - 09/02/2008 Left HERNIA REPAIR 09/03/1978 - 09/02/1979 Left Medical History Medical History Date Comments Gastric reflux Kidney stone GERD (gastroesophageal reflux disease) Family History Medical History Relation Name Comments Arthritis Father Essential Tremor Father Family hist ory of benign essential tremor - (Added by TW Conv) Gout Father Prostate cancer Father Urolithiasis Father's Brother Prostate cancer Paternal Grandfather age unknown Breast cancer Neg Hx Ovarian cancer Neg Hx Pancreatic cancer Neg Hx Relation Name Status Comments Father Father's Brother Paternal Grandfather Social History Tobacco Use Types Packs/Day Years [...] on file Legal Sex Female 7:46 AM BELT TURNER Gender Identity Not on file Sexual Orientation Not on file Obstetrics History Para Term AB IAB SAB Ectopic Multiple Livin g Live Births 1 1 1 Date Outcome GA Total Labor Labor/2nd/3rd Weight Sex Type Anes PTL Rebecca A1 A5 Name Clin Term Last Filed Vital Signs Vital Sign Reading [...] 03/24/2025 9:59 AM CDT Plan of Treatment Health Maintenance Due Date Last Done Comments Cervical Cancer Screening 1969 Colon Cancer Screening-Colonoscopy 1969 Hepatitis C Screening 1969 DTaP/Tdap/Td Vaccine (1 - Tdap) 1980 Hepatitis B Screening 1987 Regular Well Visit/Exam 18-64 1987 Zoster Vaccine (1 of 2) 2019 Covid-19 Vaccine (2 - 2023-2 5 season) 2024 07/29/2021 Depression Screening 05/11/2024 05/11/2023 Influenza Vaccine (#1) 2025 Breast Cancer Screening-Mammogram 07/04/2025 024 Pneumococcal vaccine <65 Aged Out No longer eligible based on patient's age to complete this topic Medical Devices Implanted Type Area Casting Machine Adjuster Device Identifier Shelf Expiration Date Model / Serial / Lot [employer] Juan Jose Contour Vl 4.8fr 22-30cm Taper Tip Bladder Calin Low Profile Stiff Latex Free 180-155-01 - [id number] Implanted:Qty: 1 on 05/11/2023 by Ishan Oconnor MD at [facility] Left: Ureter [place] [employer] Juan Jose 09/04/2026 [id number] / / [id number] Procedures Procedure Name Priority Date/Time Associated Diagnosis [...] lead (03/24/2025 10:12 AM CDT) Rebeca Key FRONT DESK AUXILIARY ECG ORDERABLES Final Result * POCT urinalysis dipstick (12/23/2024 7:40 PM CDT) Color, Urine, POC Yellow Clarity, ur, POC Clear Clear Glucose, ur, POC Negative Negative MG/DL Bilirubin, ur, POC Negative Negative, Small, Moderate, Large Ketones, ur, POC Negative Negative Specific [place], POC 1.030 1.003 - 1.030 Blood, ur, POC Negative Negative pH, ur, POC 5.5 5.0 - 8.0 Protein, ur, POC Negative Negative Urobilinogen, urine, POC 0.2 0.2 - 1.0 mg/dL Nitrite, ur, POC Negative Negative Leukocytes, ur, POC Negative Negative Lot Number [id number] Urine 12/23/2024 7:40 PM CDT Ashish Willis NP POINT OF CARE TEST ORDERABLES F inal Result * Urine culture Urine, clean voided (12/23/2024 7:40 PM CDT) Report Final Report: Growth indicative of contamination with periurethral viral. Please submit a new specimen with special attention given to the collection process and to prompt transport to the laboratory. Comment:Testing performed by : [facility], [address] [facility], [place]., [address] Organism GROWTH INDICATES CONTAM WITH PERIURETHRAL VIRAL. TRUE Urine, clean voided 12/23/2024 7:40 PM CDT 12/24/2024 5:53 AM CDT Narrative TRUE LYNN - 12/25/2024 1:13 PM CDT Testing performed by [facility] Microbiology Laboratory ([phone]) Ashish Willis NP LAB MICROBIOLOGY - GENERAL ORDFlorencio VASQUEZ Final Result TRUE LYNN [address] Department [place] [address] * Screening Mammogram Bilateral W Georges (07/04/2024 4:20 PM CDT) Anatomical Region Laterality Modality Breast Bilateral Mammography 07/16/2024 9:05 AM BELT TURNER Impressions 07/16/2024 9:05 AM BELT TURNER No evidence of malignancy in either breast. FINAL ASSESSMENT: BI-RADS Category 1: Negative. RECOMMENDATION: Recommend return for annual screening mammogram in 12 months. Electronically signed by: Deonna Mccullough MD Narrative 07/16/2024 9:05 AM BELT TURNER EXAMINATION: BILATERAL SCREENING MAMMOGRAM COMPARISON: Mammography 04/30/2023, [...] Most Recently Relevant to Health Maintenance Insurance [facility] Advance Directives For more information, please contact: [phone] * Full Code (Latest Code Status on File) Date Activated Date Inactivated Comments 05/11/2023 12:29 PM 05/12/2023 5:23 PM Care Teams Strip Cleaner Relationship Specialty Start Date End Date Juan Deleon DO PCP - General 04/20/17 Ishan Oconnor MD Consulting Physician Urology 05/12/23 Marko Murdock MD Consulting Physician Urology 08/28/23
--- NOTE | 2025-03-24 12:49 | ED.GENADULT ---
HPI - General Adult General Chief complaint: Chest Pain Stated complaint: chest pain Time Seen by Provider: 03/24/25 11:59 History of Present Illness HPI narrative: 54-year-old female presents to the emergency department for evaluation for episode of chest pain that occurred while she was driving. Patient states that she felt a band of pressure across her upper abdomen lower chest that lasted about 30 minutes. Patient states he did have some pain in her molars at the time. Patient denies any prior history of coronary artery disease. Patient has no documented history of high cholesterol hypertension. Patient does take propranolol for essential tremor. Patient denies any exertional chest pain at baseline. Patient has no prior history of PE or DVT. Patient does take control. Related Data Home Medications ?Medication ?Instructions ?Recorded ?Confirmed ?Last Taken ?Type estradiol-norethindrone acet 0.5 1 tablet PO DAILY 04/06/23 05/02/24 Unknown History mg-0.1 mg tablet propranolol 120 mg capsule,24 120 mg PO DAILY 01/02/24 05/02/24 Unknown History hr,extended release Allergies Allergy/AdvReac Type Severity Reaction Status Date / Time hydrocodone Allergy Itching Verified 05/02/24 11:13 Review of Systems Review of Systems: All systems reviewed & are unremarkable except as noted in HPI and below PMFSH Past Medical History Medical History (Updated 03/24/25 @ 15:17 by Pedro Negro MD) Hyperglycemia GERD (gastroesophageal reflux disease) Essential tremor Kidney infection Kidney stone Patient has had several-followed by [facility] Tubal Surgical History Surgical History (Updated 05/02/24 @ 11:11 by Mony Amezquita CMA) History of Mohs surgery for squamous cell carcinoma in situ of skin Family History Family History Mother Hypertension Father Hypertension Essential tremor Parkinson disease Social History Social History (Updated 05/02/24 @ 11:16 by Mony Amezquita CMA) Smoking status: Never smoker Alcohol intake: current Drinks per week: 6 Alcohol use details: socially every other weekend Substance use: never Substance use type: does not use Do You Feel Safe in your Home?: Yes Lack of Transportation: No Lack of Food: Never True Current Housing: I Have Housing Concerned About Future Housing: No Difficulty Paying Gas/Electric Bills: No Difficulty Paying for Meds: No Currently Unemployed: No Education: Bachelor's Degree Difficulty w/ Childcare or Family Care: No Living arrangements: alone Spiritual care concerns: No Course Vital Signs Vital signs: Vital Signs Pulse Rate 62 03/24/25 11:09 Respiratory Rate 15 03/24/25 11:09 Blood Pressure 148/106 H 03/24/25 11:09 Pulse Oximetry 97 03/24/25 11:09 Oxygen Delivery Room Air 03/24/25 11:09 Temperature 98.2 F 03/24/25 15:26 Pulse Rate 60 03/24/25 14:52 Respiratory Rate 16 03/24/25 14:52 Blood Pressure 173/93 H 03/24/25 14:52 Pulse Oximetry 98 03/24/25 14:52 Oxygen Delivery Room Air 03/24/25 11:10 Medical Decision Making MDM Narrative Medical decision making narrative: 54-year-old female presents emergency department for evaluation for episode of chest pain. Patient is currently afebrile with no leukocytosis hemoglobin 13.8. Patient has an INR of 1.1 but did have an elevated D-dimer of 0.51. Patient had negative serial troponins. Chest x-ray shows no acute cardiopulmonary abnormality. EKG shows normal sinus rhythm. CTA shows no evidence of pulmonary embolism. Low concern for pulmonary embolism or ACS. Patient was encouraged to have outpatient follow-up with her primary care physician to have additional outpatient cardiac testing. All questions concerns were addressed. Patient was symptom-free at time of sign-out. Differential Diagnosis Differential Diagnosis: Pneumothorax, pneumonia, pulmonary embolism, ACS Vital Signs Vital Signs: Vital Signs Pulse Rate 62 03/24/25 11:09 Respiratory Rate 15 03/24/25 11:09 Blood Pressure 148/106 H 03/24/25 11:09 Pulse Oximetry 97 03/24/25 11:09 Oxygen Delivery Room Air 03/24/25 11:09 Temperature 98.2 F 03/24/25 15:26 Pulse Rate 60 03/24/25 14:52 Respiratory Rate 16 03/24/25 14:52 Blood Pressure 173/93 H 03/24/25 14:52 Pulse Oximetry 98 03/24/25 14:52 Oxygen Delivery Room Air 03/24/25 11:10 Lab Data Lab results reviewed: Yes I reviewed the patient's lab results. 03/24/25 11:19 03/24/25 11:19 Labs: Lab Results 03/24/25 03/24/25 Range/Units 11:19 14:18 WBC 6.4 (4.5-10.0) K/mm3 RBC 4.49 (4.2-5.4) M/mm3 Hgb 13.8 (12.0-15.0) g/dL Hct 40.1 (37.0-47.0) % MCV 89.3 (80-100) fl MCH 30.7 (26-34) pg MCHC 34.4 (32-36) g/dl RDW 12.6 (11.5-14.5) % Plt Count 237 (150-375) k/mm3 MPV 9.0 (7.4-10.4) fl Immature Gran % (Auto) 0.2 (0-0.5) % Neut % (Auto) 54.8 (45.5-73.1) % Lymph % (Auto) 35.0 (18.3-44.2) % [place] % (Auto) 9.3 H (2.6-8.5) % Eos % (Auto) 0.2 (0-4.4) % Baso % (Auto) 0.5 (0.2-1.2) % Lymph # (Auto) 2.25 (0.9-3.2) K/mm3 [place] # (Auto) 0.6 (0.1-0.6) K/mm3 Eos # (Auto) 0.0 (0-0.3) K/mm3 Baso # (Auto) 0.0 (0.0-0.1) K/mm3 Abs Immat Gran (auto) 0.01 (0.00-0.031) K/mm3 Absolute Neuts (auto) 3.5 (1.3-6.7) K/mm3 Absolute Nucleated RBC 0.000 (0.0-0.012) K/mm3 Nucleated RBC % 0.0 (0.0-0.2) % PT 14.1 (11.1-14.7) Seconds INR 1.1 APTT 23.7 (22.3-36.8) Seconds D-Dimer 0.51 H (<0.48) ug/mL Sodium 135 L (137-145) mmol/L Potassium 4.1 (3.4-5.0) mmol/L Chloride 102 (98-107) mmol/L Carbon Dioxide 23 (22-30) mmol/L Anion Gap 10 (4-12) mmol/L BUN 14 D (7-17) mg/dL Creatinine 0.85 (0.7-1.0) mg/dL Estim Creat Clear Calc 64 ml/min Estimated GFR > 60 (59 - ) Glucose 113 H (65-110) mg/dL Calcium 9.5 (8.4-10.2) mg/dL Total Bilirubin 0.8 (0.2-1.3) mg/dL AST 34 (14-36) U/L ALT 35 (6-35) U/L Alkaline Phosphatase 65 (38-126) U/L Troponin I < 0.012 < 0.012 (0.000-0.034) ng/mL Total Protein 7.2 (6.3-8.2) g/dL Albumin 4.3 (3.5-5.1) g/dL Lipase 36 (23-300) U/L Imaging Data Radiologist's impression: Impressions Chest X-Ray 03/24/25 12:14 IMPRESSION: 1: NO ACUTE CARDIOPULMONARY DISEASE. Chest CTA 03/24/25 13:56 IMPRESSION: No pulmonary embolus. No thoracic aortic dissection. Scattered subcentimeter pulmonary nodules, the largest measuring 7 mm in the right lower lobe for which follow-up as per Fleischner guidelines is recommended (PET/CT versus 3 month follow-up). The lungs are otherwise clear. ECG Data EKG #1: EKG Interpretation: bradycardia, sinus rhythm, no ectopy, normal QRS, normal QT and NL axis Discharge Plan Discharge Clinical Impression: Chest pain Patient Disposition: Home Condition: Stable Instructions: Antibiotic Form, Chest Pain (ED) Additional Instructions: Your CT was negative for pulmonary embolism. Your workup was negative for cardiac pathology. Have close follow-up with your primary care physician for additional outpatient cardiac testing. If you have any worsening symptoms then please call or return to the emergency department. Patient Language: Setswana Prescriptions: No Action propranolol 120 mg capsule,extended release 24hr 120 mg PO DAILY estradiol-norethindrone acet 0.5-0.1 mg Tablet 1 tablet PO DAILY pantoprazole 40 mg tablet,delayed release (DR/EC) See Rx Instructions .ROUTE .COMPLEX Qty: 90 1RF Dose Instruction: Take 1 Tablet (40 mg) by mouth daily. Rx Instructions: Take 1 Tablet (40 mg) by mouth daily. Follow-up/Referrals: Juan Deleon DO [Primary Care Provider] - Quality HEART score for chest pain patients History: slightly suspicious ECG: normal Age: > 45 and < 65 years Risk factors: 1 or 2 risk factors Troponin: < or = to 1x normal limit Heart score: 2
--- NOTE | 2025-03-24 14:14 | ECG_ITS ---
Test Date: 2025-03-24 14:21:02 Measurements Intervals [place] Rate: 55 P: 49 [place]: 145 QRS: 14 QRSD: 79 T: 22 QT: 422 QTc: 404 Interpretive Statements SINUS BRADYCARDIA Compared to ECG 03/24/2025 11:15:24 No significant changes Electronically Signed On 03-24-2025 17:08:06 CDT by Gill Howard M.D.
[2025-03-24 15:09] LABS: Troponin I < 0.012 ng/mL (0.000-0.034)
== END 2025-03-24 15:27 | disposition home or self-care (01) ==
PROVIDERS: Student in an Organized Health Care Education/Training Program; Emergency Provider Emergency Medicine; PCP Internal Medicine
DX: R07.89 Other chest pain (principal); K21.9 Gastro-esophageal reflux disease without esophagitis; G25.0 Essential tremor; Z87.442 Personal history of urinary calculi; Z85.828 Personal history of other malignant neoplasm of skin; R91.8 Other nonspecific abnormal finding of lung field; Z79.3 Long term (current) use of hormonal contraceptives; Z79.899 Other long term (current) drug therapy; R00.1 Bradycardia, unspecified
CPT/HCPCS: 36415; 71046; 71275; 80053; 83690; 84484; 85025; 85380; 85610; 85730; 93005; 99284; Q9967